=== PATIENT | male | born 1940 | race Caucasian/White ===

== ENCOUNTER 2023-01-06 09:36 | Inpatient (IN) | payer OTHER, MEDICARE ==
[2023-01-06] MEDS ORDERED: Succinylcholine 200 MG/10 ml SYRINGE FS ONE (09:45)
[2023-01-06 09:58] LABS: #Monocytes 0.7 thou/uL (0.11-0.59); #Neutrophils 8.9 thou/uL (1.40-6.50); %Basophils 0.4 % (0.0-1.0); %Eosinophils 0.2 % (0.0-10.0); %Lymphocytes 10.6 % (21.0-51.0); %Monocytes 6.8 % (0.0-10.0); %Neutrophils 81.3 % (42.0-75.0); Hematocrit 36.5 % (42.0-52.0); Hemoglobin 11.2 g/dL (14.0-18.0); Mean Corpuscular HGB CONC 30.7 g/dL (32.0-36.0); Mean Corpuscular Hemoglobin 29.9 pg (27.0-31.0); Mean Corpuscular Volume 97.6 fl (78.0-98.0); Mean Platelet Volume 10.2 fL (7.4-10.4); Platelet Count 214 10x3/uL (130-400); RBC Distribution Width 15.3 % (11.5-14.5); Red Blood Cell (RBC) Count 3.74 mill/uL (4.70-6.10); White Blood Cell (WBC) Count 10.9 10x3/uL (4.8-10.8)
[2023-01-06] MEDS ORDERED: fentaNYL 50 mcg/mL 1 mL Vial ONE ×2 (10:07→10:08)
[2023-01-06 10:12] LABS: Actual Bicarbonate (HCO3a) 19.7 mEq/L (22-28); Analyzer IN Cardio ER; Base Excess (BEa) -3.6 mEq/L (-2.0 to +3.0); CO2 Tension 30.1 mmHg (35.0-45.0); Calcium, Ionized (arterial) 1.24 mmol/L (1.12-1.30); Carboxyhemoglobin (COHb) 0.3 gm% (0.0-3.0); Hematocrit-ABG 36 % (42.0-52.0); Hemoglobin (Hb) 12.2 g/dL (14.0-18.0); Potassium - ABG Lab 4.67 mmol/L (3.70-5.30); pH, Arterial 7.433 (7.35-7.45)
[2023-01-06] MEDS ORDERED: Fentanyl CADD 100 ML IV SCH ×2 (10:15→13:00)
[2023-01-06 10:17] LABS: O2 Tension (PaO2), arterial 43.7 mmHg (> 60.0)
[2023-01-06 10:18] LABS: ALV-art Gradient 275.175 mmHg (0-20); Puncture Site Right Radial
[2023-01-06 10:20] LABS: ALT (SGPT) 14 U/L (8-55); AST (SGOT) 14 U/L (5-34); Albumin 3.5 g/dL (3.4-4.8); Alkaline Phosphatase 68 U/L (40-110); Anion Gap 15 mmol/L (10-20); BUN (Urea Nitrogen) 25 mg/dL (8.4-25.7); Bilirubin, Total 0.8 mg/dL (0.2-1.2); Calc. Creatinine Clearance 0 mL/min (70-130); Carbon Dioxide 20 mmol/L (23-31); Chloride 110 mmol/L (98-107); Estimated GFR 40; Globulin 3.3 g/dL (2.4-3.5); Glucose 159 mg/dL (83-110); Potassium 5.2 mmol/L (3.5-5.1); Protein, Total 6.8 g/dL (5.8-8.1); Sodium 140 mmol/L (136-145)
[2023-01-06 10:41] LABS: PTT 20.9 sec (22.9-36.1)
[2023-01-06 10:51] LABS: Bacteria/HPF None Seen HPF (None Seen); Bilirubin Negative (Negative); Blood, Urine Negative (Negative); CAUTI Indications for Culture Alt mental st,lethar; Clarity Clear (Clear); Glucose, Urine (Dipstick) Normal (Negative); Ketone, Urine Negative (Negative); Leukocyte Negative Leu/uL (Negative); Nitrite Negative (Negative); Protein, Urine (Dipstick) 30 mg/dL (Neg-Trace); RBC/HPF 0-3 HPF (0-3); Specific Gravity, Urine 1.017 (1.002-1.036); Squamous Epithelial 0-3 HPF (0-3); Urobilinogen Normal mg/dL (Less than 2); WBC/HPF 0-3 HPF (0-3)
[2023-01-06 10:54] LABS: Urine Culture Reflex No No
[2023-01-06] MEDS ORDERED: Piperacillin/Tazobactam 4.5 GM VIAL ONE ×2 (11:13→11:15)
[2023-01-06] MEDS ORDERED: Midazolam HCl 5 mg/ml Vial ONE (11:31)
[2023-01-06] MEDS ORDERED: Vancomycin 1 GM/200 ML (FROZEN) BAG ONE (11:31)
[2023-01-06] MEDS ORDERED: HumaLOG 300 UNITS/3 ML VIAL SC PRN (11:48)
[2023-01-06] MEDS ORDERED: Electrolyte Replacement Protocol 1 EACH IVPB SCH (11:48)
[2023-01-06] MEDS ORDERED: Ventilator Sedation Protocol 1 EACH FS SCH (12:00)
[2023-01-06] MEDS ORDERED: Acetaminophen 325 MG TAB PO PRN (12:05)
[2023-01-06] MEDS ORDERED: Senokot S 8.6-50 MG TAB PO PRN (12:05)
[2023-01-06] MEDS ORDERED: Ondansetron PF 4 MG/2 ML Vial IVP PRN (12:05)
[2023-01-06 12:32] LABS: SARS-CoV-2 NAA Rapid Test Not Detected (NotDetected)
[2023-01-06] MEDS: Lactated Ringer's 1,000 ML IV SCH ×2 (12:57→21:08)
[2023-01-06] MEDS ORDERED: Morphine 2 MG/ML VIAL SLOW IVP PRN (13:00)
[2023-01-06] MEDS ORDERED: Lorazepam 2 MG/ML VIAL SLOW IVP PRN (13:00)
[2023-01-06] MEDS ORDERED: DISCONTINUE PREVIOUS NARCOTIC PAIN MEDICATIONS AND BENZODIAZEPINES FS SCH (13:00)
[2023-01-06] MEDS ORDERED: Propofol BOLUS 1,000 MG/100 ML VIAL IV PRN (13:00)
[2023-01-06] MEDS ORDERED: Fentanyl BOLUS 250 ML IVPB PRN (13:00)
[2023-01-06] MEDS ORDERED: Propofol 1,000 MG/100 ML VIAL IV PRN (13:00)
[2023-01-06] MEDS ORDERED: Vancomycin Dose by Levels Sliding Scale (Wt <71) FS SCH (14:30)
[2023-01-06] MEDS: Piperacillin/Tazobactam 3.375 GM in Sodium Chloride 0.9% 100 ML IVPB SCH ×2 (14:39→21:22)
[2023-01-06 16:45] LABS: Actual Bicarbonate (HCO3a) 18.9 mEq/L (22-28); Base Excess (BEa) -4.1 mEq/L (-2.0 to +3.0); CO2 Tension 28.4 mmHg (35.0-45.0); Calcium, Ionized (arterial) 1.21 mmol/L (1.12-1.30); Carboxyhemoglobin (COHb) 0.3 gm% (0.0-3.0); Hematocrit-ABG 32 % (42.0-52.0); Hemoglobin (Hb) 10.9 g/dL (14.0-18.0); O2 Tension (PaO2), arterial 64.9 mmHg (> 60.0); Potassium - ABG Lab 4.82 mmol/L (3.70-5.30); pH, Arterial 7.442 (7.35-7.45)
[2023-01-06 16:49] LABS: Puncture Site LBA
[2023-01-06] MEDS ORDERED: Vancomycin HCl 1.5 GM in Sodium Chloride 0.9% 250 ML 300 ML IVPB SCH (21:00)
[2023-01-06] MEDS: Famotidine/PF 20 mg/2ml Vial SLOW IVP SCH (21:08)
[2023-01-06] MEDS: Tamsulosin HCl 0.4 MG CAP PO SCH (21:22)
[2023-01-06] MEDS: Donepezil HCl 5 MG TAB PO SCH (21:22)
[2023-01-07 04:02] LABS: Hematocrit 30.9 % (42.0-52.0); Hemoglobin 9.8 g/dL (14.0-18.0); Mean Corpuscular HGB CONC 31.7 g/dL (32.0-36.0); Mean Corpuscular Hemoglobin 30.8 pg (27.0-31.0); Mean Corpuscular Volume 97.2 fl (78.0-98.0); Mean Platelet Volume 10.3 fL (7.4-10.4); Platelet Count 151 10x3/uL (130-400); RBC Distribution Width 15.3 % (11.5-14.5); Red Blood Cell (RBC) Count 3.18 mill/uL (4.70-6.10); White Blood Cell (WBC) Count 8.8 10x3/uL (4.8-10.8)
[2023-01-07 04:19] LABS: Delete Auto Diff?? YES; Manual Diff?? YES
[2023-01-07 04:28] LABS: ALT (SGPT) 10 U/L (8-55); AST (SGOT) 13 U/L (5-34); Albumin 2.7 g/dL (3.4-4.8); Alkaline Phosphatase 51 U/L (40-110); Anion Gap 17 mmol/L (10-20); BUN (Urea Nitrogen) 26 mg/dL (8.4-25.7); Bilirubin, Total 1.2 mg/dL (0.2-1.2); Calc. Creatinine Clearance 27 mL/min (70-130); Calcium 8.7 mg/dL (7.8-10.44); Carbon Dioxide 15 mmol/L (23-31); Chloride 112 mmol/L (98-107); Estimated GFR 42; Globulin 2.8 g/dL (2.4-3.5); Glucose 122 mg/dL (83-110); Protein, Total 5.5 g/dL (5.8-8.1); Sodium 139 mmol/L (136-145)
[2023-01-07 05:00] LABS: Anisocytosis SLIGHT = 6-15 cells HPF (0-5); Band 23 % (5-11); Burr Cells MODERATE= 6-15 cells HPF (0-1); CellaVision Operator ID lab.abc; Lymphocytes 18 % (21-51); Monocytes 7 % (0-10); Neutrophil 52 % (42-75); Platelet Adequacy Comment Platelets Normal; Poikilocytosis SLIGHT = 6-15 cells HPF (0-5); Polychromasia SLIGHT = 2-3 cells HPF (0-2); Smudge Cells 19.2 %; Total Cell Count 104
[2023-01-07] MEDS: Piperacillin/Tazobactam 3.375 GM in Sodium Chloride 0.9% 100 ML IVPB SCH ×3 (05:44→22:11)
[2023-01-07] MEDS: Lactated Ringer's 1,000 ML IV SCH ×2 (06:36→22:12)
[2023-01-07 06:54] LABS: Actual Bicarbonate (HCO3a) 19.4 mEq/L (22-28); Base Excess (BEa) -3.7 mEq/L (-2.0 to +3.0); Calcium, Ionized (arterial) 1.19 mmol/L (1.12-1.30); Carboxyhemoglobin (COHb) 0.3 gm% (0.0-3.0); Hematocrit-ABG 31 % (42.0-52.0); Hemoglobin (Hb) 10.7 g/dL (14.0-18.0); O2 Tension (PaO2), arterial 70.5 mmHg (> 60.0); Potassium - ABG Lab 4.71 mmol/L (3.70-5.30); pH, Arterial 7.444 (7.35-7.45)
[2023-01-07 06:56] LABS: Puncture Site LBA
[2023-01-07 07:11] VITALS: TEMP 97.8
[2023-01-07 08:41] VITALS: BMI 16.9
[2023-01-07] MEDS ORDERED: Bisacodyl 10 MG SUPP PR SCH (09:00)
[2023-01-07] MEDS ORDERED: Senokot S 8.6-50 MG TAB PO SCH (09:00)
[2023-01-07] MEDS ORDERED: Polyethylene Glycol 3350 17 GM Packet PO SCH (09:00)
[2023-01-07 12:30] LABS: Vancomycin, Random 8.8 ug/mL (See Comment)
[2023-01-07] MEDS ORDERED: Vancomycin HCl 750 MG in Sodium Chloride 0.9% 250 ML 250 ML IVPB SCH (12:45)
[2023-01-07 16:12] VITALS: BP 112/43
[2023-01-07] MEDS: Lorazepam 2 MG/ML VIAL SLOW IVP PRN ×3 (19:41→21:46)
[2023-01-07] MEDS: Morphine 10 MG/ML VIAL SLOW IVP PRN ×3 (19:41→21:47)
[2023-01-07] MEDS: Famotidine/PF 20 mg/2ml Vial SLOW IVP SCH (20:09)
[2023-01-07] MEDS: Donepezil HCl 5 MG TAB PO SCH (20:09)
[2023-01-07] MEDS: Tamsulosin HCl 0.4 MG CAP PO SCH (20:09)
== END 2023-01-07 22:30 | disposition expired | DRG 871 ==
LOC: ERS 09:36 → CCU 11:38
PROVIDERS: ADMIT Internal Medicine; ATTEND Internal Medicine
PROC: 5A1945Z Respiratory Ventilation, 24-96 Consecutive Hours (ICD-10-PCS; principal; 2023-01-06)
PROC: 0BH17EZ Insertion of Endotracheal Airway into Trachea, Via Natural or Artificial Opening (ICD-10-PCS; 2023-01-06)
PROC: 0D9670Z Drainage of Stomach with Drainage Device, Via Natural or Artificial Opening (ICD-10-PCS; 2023-01-06)
PROC: 3E03329 Introduction of Other Anti-infective into Peripheral Vein, Percutaneous Approach (ICD-10-PCS; 2023-01-06)
PROC: 4A133R1 Monitoring of Arterial Saturation, Peripheral, Percutaneous Approach (ICD-10-PCS; 2023-01-06)
DX: A41.9 Sepsis, unspecified organism (principal); J18.9 Pneumonia, unspecified organism; J96.01 Acute respiratory failure with hypoxia; Z68.1 Body mass index [BMI] 19.9 or less, adult; E78.5 Hyperlipidemia, unspecified; Z51.5 Encounter for palliative care; Z66 Do not resuscitate; N40.0 Benign prostatic hyperplasia without lower urinary tract symptoms; N18.9 Chronic kidney disease, unspecified; R62.7 Adult failure to thrive; E11.22 Type 2 diabetes mellitus with diabetic chronic kidney disease; I12.9 Hypertensive chronic kidney disease with stage 1 through stage 4 chronic kidney disease, or unspecified chronic kidney disease; R41.0 Disorientation, unspecified; L89.610 Pressure ulcer of right heel, unstageable; Z20.822 Contact with and (suspected) exposure to COVID-19; E87.5 Hyperkalemia; Z87.81 Personal history of (healed) traumatic fracture; Z88.0 Allergy status to penicillin; Z87.828 Personal history of other (healed) physical injury and trauma; Z95.0 Presence of cardiac pacemaker; Z87.891 Personal history of nicotine dependence; S12.500D Unspecified displaced fracture of sixth cervical vertebra, subsequent encounter for fracture with routine healing; Z85.46 Personal history of malignant neoplasm of prostate; S12.600D Unspecified displaced fracture of seventh cervical vertebra, subsequent encounter for fracture with routine healing; S22.089D Unspecified fracture of T11-T12 vertebra, subsequent encounter for fracture with routine healing; V89.2XXD Person injured in unspecified motor-vehicle accident, traffic, subsequent encounter; Z87.440 Personal history of urinary (tract) infections
CPT/HCPCS: 36415; 36416; 36600; 51702; 71045; 80053; 80202; 81001; 82533; 82805; 83605; 83880; 84484; 85025; 85610; 85730; 87040; 87077; 87081; 87086; 93005; 94002; 94003; 96361; 96365; 96366; 96368; 96375; 96376; J1650; J2060; J2250; J2270; J2272; J2543; J3010; J3370; J3370-JW; J3490; J7050; J7120; S0028

== ENCOUNTER 2023-01-07 08:00 | Inpatient (IN) | payer OTHER | END 2023-01-07 08:01 | disposition E | DRG 951 | LOC: CCU 08:00 | PROVIDERS: ADMIT Family Medicine; ATTEND Family Medicine | DX: Z51.5 Encounter for palliative care (principal); A41.9 Sepsis, unspecified organism; J96.01 Acute respiratory failure with hypoxia; J18.9 Pneumonia, unspecified organism; S12.500D Unspecified displaced fracture of sixth cervical vertebra, subsequent encounter for fracture with routine healing; S12.600D Unspecified displaced fracture of seventh cervical vertebra, subsequent encounter for fracture with routine healing; S22.089D Unspecified fracture of T11-T12 vertebra, subsequent encounter for fracture with routine healing; V89.2XXD Person injured in unspecified motor-vehicle accident, traffic, subsequent encounter; Z66 Do not resuscitate; R62.7 Adult failure to thrive; Z79.899 Other long term (current) drug therapy; E87.5 Hyperkalemia; E11.22 Type 2 diabetes mellitus with diabetic chronic kidney disease; N18.9 Chronic kidney disease, unspecified; I10 Essential (primary) hypertension ==